=== PATIENT | female | born 1990 | race African-American/Black ===

== ENCOUNTER 2022-03-11 10:59 | Emergency (ER) | payer BC ==
[2022-03-11 12:13] LABS: Bilirubin Neg (Negative); Blood, Urine 150 (Negative); Clarity Cloudy (Clear); Glucose, Urine (Dipstick) Normal (Negative); Ketone, Urine Negative (Negative); Leukocyte Negative (Negative); Nitrite Negative (Negative); Protein, Urine (Dipstick) Negative (Neg-Trace); Urobilinogen Normal mg/dL (Less than 2)
[2022-03-11 12:14] LABS: Pregnancy Test - Urine (BHCG) Negative (Negative); Pregu Control Background? CLEAR/WHITE (CLR/WHITE); Pregu Control Bar Appear? YES (CONTROL BAR)
[2022-03-11 12:32] LABS: Bacteria/HPF Rare-Few HPF (None Seen); Mucous/LPF 1+ LPF (<2+); Squamous Epithelial 0-3 HPF (0-3); WBC/HPF None Seen HPF (0-3)
[2022-03-11] MEDS ORDERED: Ketorolac Tromethamine 30 MG/ML VIAL ONE (13:00)
[2022-03-12 12:10] LABS: Chlamydia by PCR Not Detected (NotDetected); GC by PCR Not Detected (NotDetected)
== END 2022-03-11 16:05 | disposition home or self-care (01) ==
LOC: CSHERS 10:59
DX: N83.201 Unspecified ovarian cyst, right side (principal); M54.50 Low back pain, unspecified
CPT/HCPCS: 74176; 76856; 81003; 81015; 81025; 87086; 87480; 87491; 87510; 87591; 87660; 87661; 96372; J1885